=== PATIENT | male | born 1970 | race Caucasian/White ===

== ENCOUNTER → 2016-08-12 | Outpatient (CLI) | payer BC ==
[2016-08-12 15:00] LABS: BLOOD UREA NITROGEN 13 mg/dL (7-22); BUN/CREATININE RATIO 16.25 (6-20); CHOL/HDL RATIO 5.26 RATIO (0-4.0); EST GLOMERULAR FILTRATION > 60 (>60 ml/min/1.73m(2)); HDL CHOLESTEROL 34 mg/dL (40-150); SERUM ALBUMIN 3.7 g/dL (3.5-4.8); SERUM CHOLESTEROL 179 mg/dL (120-200)
== END ==
LOC: LAB 08:08
PROVIDERS: ATTEND Physician Assistant Medical
DX: Z00.01 Encounter for general adult medical examination with abnormal findings (principal); J40 Bronchitis, not specified as acute or chronic; Z12.5 Encounter for screening for malignant neoplasm of prostate
CPT/HCPCS: 80053; 80061; 84443; G0103